=== PATIENT | male | born 1975 | race American Indian/Alaskan Native ===

== ENCOUNTER 2016-10-21 01:44 | Emergency (ER) | payer OTHER ==
[2016-10-21] MEDS ORDERED: DUONEB 0.5 MG-3 MG/3 ML SOLN IH ONE ×2 (02:06→02:17)
[2016-10-21] MEDS ORDERED: PROVENTIL IH ONE ×3 (02:20→03:09)
[2016-10-21 02:46] LABS: Basophils % (Auto) 0.8 % (0.0-1.8); Eosinophils % (Auto) 2.1 % (0.0-4.3); Hematocrit 42.5 % (35.5-45.6); Hemoglobin 14.5 gm/dl (11.8-15.2); Mean Corpuscular HGB Conc 34 % (32-34); Mean Corpuscular Hemoglobin 33 pg (28-32); Mean Corpuscular Volume 98 fl (84-94); Platelet Count 203 K/mm3 (140-440); Red Blood Count 4.34 M/mm3 (3.65-5.03); Red Cell Distribution Width 12.3 % (13.2-15.2); White Blood Count 6.3 K/mm3 (4.5-11.0)
[2016-10-21 03:02] LABS: Anion Gap 18 mmol/L; BUN/Creatinine Ratio 17.14; Blood Urea Nitrogen 24 mg/dL (9-20); Calcium 9.1 mg/dL (8.4-10.2); Carbon Dioxide 24 mmol/L (22-30); Chloride 102.1 mmol/L (98-107); Glucose 119 mg/dL (75-100); Potassium 4.1 mmol/L (3.6-5.0); Sodium 140 mmol/L (137-145)
[2016-10-21] MEDS ORDERED: ATROVENT IH ONE (03:09)
[2016-10-21] MEDS ORDERED: DELTASONE PO ONE (03:09)
--- NOTE | 2016-10-21 03:14 | Emergency Department Report ---
HPI - General Chief Complaint: Dyspnea/Respdistress Time Seen by Provider: 10/21/16 03:05 - HPI HPI: 41-year-old Afro-[place] male presents the emergency department with complaint of a 2 to three-day history of some shortness of breath and wheezing that he believes is an asthma exacerbation. The patient does have a history of asthma. The patient has both inhaler and nebulized machine/treatments but they just came up from home in [place] this morning and he left his medications there. He denies any chest pain, fever, cough, back pain, nausea, vomiting or diaphoresis. The symptoms began before they made any road trip or travel. He does not have a primary care doctor back home. No sick contacts. He denies ever needing admission or intubation secondary to his asthma. ED Past Medical Hx - Past Medical History Previous Medical History?: Yes Hx Asthma: Yes - Surgical History Past Surgical History?: No - Social History Smoking Status: Never Smoker Substance Use Type: None - Medications Home Medications: Home Medications Medication Instructions Recorded Confirmed Last Taken Type ALBUTEROL Inhaler [ProAir HFA 2 puff IH QID PRN #1 inhalation 10/21/16 Unknown Rx Inhaler] predniSONE [Deltasone] 20 mg PO BID #10 tab 10/21/16 Unknown Rx ED Review of Systems ROS: Stated complaint: DIFFICULTY BREATHING Other details as noted in HPI Comment: All other systems reviewed and negative Constitutional: denies: chills, fever Eyes: denies: eye pain, eye discharge, vision change ENT: denies: ear pain, throat pain Respiratory: shortness of breath, wheezing Cardiovascular: denies: chest pain, palpitations Gastrointestinal: denies: abdominal pain, nausea, diarrhea Genitourinary: denies: urgency, dysuria Musculoskeletal: denies: back pain, joint swelling, arthralgia Skin: denies: rash, lesions Neurological: denies: headache, weakness, paresthesias Physical Exam - Physical Exam Vital Signs: Vital Signs 10/21/16 10/21/16 10/21/16 01:52 01:59 02:18 Temperature 97.8 F 97.8 F Pulse Rate 90 90 Pulse Rate [ 82 Throughout] Respiratory 22 16 Rate Respiratory 20 Rate [ Throughout] Blood Pressure 126/90 Blood Pressure [Left] Blood Pressure 126/90 [Right] O2 Sat by Pulse 96 96 Oximetry 10/21/16 10/21/16 02:35 03:09 Temperature 97.9 F Pulse Rate 80 Pulse Rate [ 87 Throughout] Respiratory 20 Rate Respiratory 20 Rate [ Throughout] Blood Pressure Blood Pressure 117/71 [Left] Blood Pressure [Right] O2 Sat by Pulse 96 Oximetry Physical Exam: GENERAL: The patient is well-developed well-nourished. HEENT: Normocephalic. Atraumatic. Extraocular motions are intact. Patient has moist mucous membranes. Pupils equal reactive to light bilaterally. NECK: Supple. Trachea is midline. CHEST/LUNGS: Mild wheezing throughout the chest. No tachypnea or accessory muscle use. No cough heard during examination. There is no respiratory distress noted. HEART/CARDIOVASCULAR: Regular. There is no tachycardia. There is no gallop rub or murmur. ABDOMEN: Abdomen is soft, nontender. Patient has normal bowel sounds. There is no abdominal distention. SKIN: There is no rash. There is no edema. There is no diaphoresis. NEURO: The patient is awake, alert, and oriented. The patient is cooperative. The patient has no focal neurologic deficits. The patient has normal speech. MUSCULOSKELETAL: There is no tenderness or deformity. There is no limitation range of motion. There is no evidence of acute injury. ED Course Vital Signs 10/21/16 10/21/16 10/21/16 01:52 01:59 02:18 Temperature 97.8 F 97.8 F Pulse Rate 90 90 Pulse Rate [ 82 Throughout] Respiratory 22 16 Rate Respiratory 20 Rate [ Throughout] Blood Pressure 126/90 Blood Pressure [Left] Blood Pressure 126/90 [Right] O2 Sat by Pulse 96 96 Oximetry 10/21/16 10/21/16 02:35 03:09 Temperature 97.9 F Pulse Rate 80 Pulse Rate [ 87 Throughout] Respiratory 20 Rate Respiratory 20 Rate [ Throughout] Blood Pressure Blood Pressure 117/71 [Left] Blood Pressure [Right] O2 Sat by Pulse 96 Oximetry ED Medical Decision Making - Lab Data Result diagrams: 10/21/16 02:32 10/21/16 02:32 - EKG Data -: EKG Interpreted by Me EKG shows normal: sinus rhythm, axis, intervals, QRS complexes, ST-T waves Rate: normal - EKG Data When compared to previous EKG there are: previous EKG unavailable Interpretation: normal EKG - Radiology Data Radiology results: image reviewed interpreted by me: CChest x-ray did not show any acute process. Heart is normal shape and size. No effusions. No pneumothorax. No signs of pneumonia seen.t - Medical Decision Making 41-year-old male presents to the emergency department with some shortness of breath and wheezing consistent with previous asthma exacerbations. Patient came up here for a visible left his medications back in [place] accidentally. Vital signs are stable including being afebrile. There is no significant tachycardia and no hypoxia. Patient had symptoms prior to his driving and is low suspicion for pulmonary embolism. He has no chest pain. Patient's labs are unremarkable including a negative troponin. EKG does not show any signs of ST elevation CT, ischemia or dysrhythmia. Chest x-ray does not show any pneumonia, pneumothorax or pleural effusion. Patient was given breathing treatments and steroids. Upon reevaluation he has improvement of his bronchospasm. He will be given a five-day course of steroids and a refill of an inhaler. As the patient does not live here and will be returning to [place], he does not need any primary care doctor referrals but has been encouraged to return to the ER with any worsening of symptoms or any acute distress. - Differential Diagnosis asthma, pneumonia, bronchitis, CT, URI Critical Care Time: No Critical care attestation.: If time is entered above; I have spent that time in minutes in the direct care of this critically ill patient, excluding procedure time. ED Disposition Clinical Impression: Asthma exacerbation, Bronchospasm Disposition: DISCHARGED TO HOME OR SELFCARE Is pt being admited?: No Does the pt Need Aspirin: No Condition: Stable Instructions: Asthma (ED) Additional Instructions: Please follow-up with a primary care doctor when you return back to [place]. In the meantime, return to the emergency department with any worsening of her symptoms or any acute distress. Prescriptions: ALBUTEROL Inhaler [ProAir HFA Inhaler] 2 puff IH QID PRN #1 inhalation PRN Reason: Shortness Of Breath predniSONE [Deltasone] 20 mg PO BID #10 tab Referrals: PRIMARY CARE, [Primary Care Provider] - 3-5 Days Time of Disposition: 04:51
[2016-10-21 05:08] VITALS: BP 122/68
--- NOTE | 2016-10-21 09:25 | XRay Report ---
Chest 2 views: History: Shortness of breath. Findings: Normal cardiomediastinal silhouette. Trachea is midline. There is emphysema. No consolidation or pleural effusion. Impression: Emphysema. No acute lung changes.
== END 2016-10-21 05:08 | disposition home or self-care (01) ==
LOC: ED 01:44
DX: J45.901 Unspecified asthma with (acute) exacerbation (principal)
CPT/HCPCS: 36415; 71020; 80048; 84484; 85025; 93005; 93010; 94640; 99284; J7512